=== PATIENT | female | born 1985 | race Caucasian/White ===

== ENCOUNTER 2018-02-14 14:56 | Emergency (ER) | payer BC ==
[2018-02-14 15:08] VITALS: TEMP 98.3; BMI 25.4
--- NOTE | 2018-02-14 15:15 | PDOC ---
Rapid Medical Evaluation Chief Complaint: Palpitations Time Seen by Provider: 02/14/18 15:09 Medical Evaluation: Allergies Allergy/AdvReac Type Severity Reaction Status Date / Time No Known Allergies Allergy Verified 08/21/15 18:45 Vital Signs Temp Pulse Resp BP Pulse Ox 98.3 F 110 H 20 159/100 99 02/14/18 15:01 02/14/18 15:01 02/14/18 15:01 02/14/18 15:01 02/14/18 15:01 02/14/18 15:14 I have performed a brief in-person evaluation of this patient. The patient presents with a chief complaint of:palpitations w/ sob. H/o MVP, not on meds. F/u with cards at [facility]. No h/o dvt/PE Pertinent physical exam findings:tachy to 110, chest/lungs clear otherwise I have ordered the following:ekg/cxr/labs The patient will proceed to the ED for further evaluation. Discharge Disposition - Diagnosis Palpitations - Referrals - Patient Instructions - Post Discharge Activity
--- NOTE | 2018-02-14 15:17 | PDOC ---
History of Present Illness - General Chief Complaint: Palpitations Stated Complaint: SOB, PALPITATIONS (ASTHMA) Time Seen by Provider: 02/14/18 15:09 - History of Present Illness Initial Comments: 30 year old female with a past medical history of migraines and mitral valve prolapse presenting to the ED complaining of worsening palpitations for the pat 4-5 days. She was diagnosed with MVP after a syncopal episode in the setting of palpations. Her tapping machine operator automatic (Dr. Suarez) decided to monitor her with a trial prescription of as-needed beta abbi that she never used. She denies any recent illness, dehydration, or life stresses. States that the palliations have become much more frequent and with worse co-presenting symptoms including lightheadedness and some light nausea. Denies any fevers, chills, vomiting, diarrhea, chest pain, constipation, or other symptoms. 02/14/18 15:57 Past History - Past Medical History Allergies/Adverse Reactions: Allergies Allergy/AdvReac Type Severity Reaction Status Date / Time No Known Allergies Allergy Verified 08/21/15 18:45 Home Medications: Ambulatory Orders Metoprolol Succinate 25 mg PO DAILY 30 Days #30 tab.er.24h 02/14/18 Cardiac Disorders: Yes (MVP) COPD: No Other medical history: denies - Immunization History Immunization Up to Date: Yes - Suicide/Smoking/Psychosocial Hx Smoking History: Never smoked Information on smoking cessation initiated: No Hx Alcohol Use: No Drug/Substance Use Hx: No Substance Use Type: None Review of Systems - Review of Systems Constitutional: No: Chills, Diaphoresis, Fever HEENTM: No: Blurred Vision, Tearing Respiratory: Yes: Cough, Shortness of Breath. No: Wheezing, Productive cough Cardiac (ROS): Yes: Irregular Heart Rate, Lightheadedness, Palpitations. No: Chest Pain, Syncope, Chest Tightness ABD/GI: No: Diarrhea, Nausea, Vomiting : No: Dysuria, Discharge, Frequency Musculoskeletal: No: Back Pain, Gout, Joint Pain Integumentary: No: Lesions, Lumps, Pallor, Pruritus Neurological: Yes: Weakness. No: Headache, Numbness, Paresthesia Psychiatric: No: Anxiety, Depression Endocrine: No: Excessive Sweating, Flushing, Increased Hunger *Physical Exam - Vital Signs Last Vital Signs Temp Pulse Resp BP Pulse Ox 98.3 F 110 H 20 159/100 99 02/14/18 15:01 02/14/18 15:01 02/14/18 15:01 02/14/18 15:01 02/14/18 15:01 - Physical Exam General Appearance: Yes: Nourished, Appropriately Dressed. No: Apparent Distress HEENT: positive: EOMI, KIRAN, Normal ENT Inspection, Normal Voice Neck: positive: Trachea midline, Normal Thyroid, Supple. negative: Tender, Rigid Respiratory/Chest: negative: Chest Tender Cardiovascular: positive: Regular Rhythm, Tachycardia, Systolic Murmur ( midsystolic non-ejection click). negative: Regular Rate Gastrointestinal/Abdominal: positive: Normal Bowel Sounds, Flat, Soft. negative : Tender Musculoskeletal: positive: Normal Inspection. negative: CVA Tenderness Extremity: positive: Normal Capillary Refill, Normal Inspection, Normal Range of Motion. negative: Tender Integumentary: positive: Normal Color, Dry, Warm Neurologic: positive: Fully Oriented, Alert, Normal Mood/Affect, Normal Response , Motor Strength /5 ED Treatment Course - LABORATORY CBC & Chemistry Diagram: 02/14/18 15:44 02/14/18 15:44 Medical Decision Making - Medical Decision Making 32 year old female with PMH Of MVP and palpitations presenting with worsening palpitations. EKG demonstrating slight tachycardia with occasional PACs. 02/14/18 16:10 All labs WNL and patient feeling better after 25 Metop XL as recommended during consult phone call with Dr. Olivier (her tapping machine operator automatic). He will try to arrange an early appointment with her as well. Will send home with 25 Metop Qdaily until she sees pasquale. 02/14/18 20:27 *DC/Admit/Observation/Transfer Diagnosis at time of Disposition: Palpitations - Discharge Dispostion Disposition: HOME Condition at time of disposition: Improved Decision to Admit order: No - Prescriptions Prescriptions: Metoprolol Succinate 25 mg PO DAILY 30 Days #30 tab.er.24h - Referrals Referrals: Lorelei Rosa MD [Staff Physician] - - Patient Instructions Printed Discharge Instructions: DI for Palpitations Additional Instructions: Your palpitations may be related to your valve issue. Please take your medication everyday until you see Dr. Suarez. Please stay well hydrated and please return to the ED if you experience very lightheaded or feel as if you will pass out. Please follow up with Dr. Suarez as early as possible. - Post Discharge Activity
[2018-02-14 15:55] LABS: BASO % 0.5 % (0-2.0); EOS % 0.3 % (0-4.5); HEMOGLOBIN 13.7 GM/dL (10.7-15.3); LYMPH % 21.8 % (8-40); MCHC 33.4 g/dl (32.0-36.0); MEAN CELL VOLUME 89.9 fl (80-96); MEAN PLT VOLUME 8.3 fl (7.5-11.1); MONO % 6.2 % (3.8-10.2); NEUT % 71.2 % (42.8-82.8); PLATELET COUNT 300 K/MM3 (134-434); RBC 4.56 M/mm3 (3.60-5.2); RDW 13.4 % (11.6-15.6); WHITE BLOOD COUNT 10.2 K/mm3 (4.0-10.0)
[2018-02-14] MEDS ORDERED: SODIUM CHLORIDE 0.9% 500 ML INFUS.BAG IV ONE (16:12)
--- NOTE | 2018-02-14 16:31 | PDOC ---
Attending Attestation - Resident Resident Name: Ester Rico - ED Attending Attestation I have performed the following: I have examined & evaluated the patient, The case was reviewed & discussed with the resident, I agree w/resident's findings & plan, Exceptions are as noted - HPI HPI: 32 yo F history migraines, mitral valve prolapse presents with worsening palpitations for past few days. She states she has had similar palpitations in the past which led to her diagnosis of mitral valve prolapse, however, she states that these are more frequent than usual. She states she had an episode of lightheadedness with the palpitations. No LOC. She saw nozzle tender for the same, was prescribed beta-abbi to use prn, but has not used it. No recent illness, N/V/D, f/c, leg swelling, cp, SOB, change in PO intake. No recent travel. - Physicial Exam PE: GENERAL: Awake, alert, and fully oriented, in no acute distress HEAD: No signs of trauma EYES: PERRLA, EOMI, sclera anicteric, conjunctiva clear ENT: Auricles normal inspection, hearing grossly normal, nares patent, oropharynx clear without exudates. Moist mucosa NECK: Normal ROM, supple, no lymphadenopathy, JVD, or masses LUNGS: Breath sounds equal, clear to auscultation bilaterally. No wheezes, and no crackles HEART: Mildly tachycardic with normal rhythm, normal S1 and S2, no murmurs, rubs or gallops ABDOMEN: Soft, nontender, normoactive bowel sounds. No guarding, no rebound. No masses EXTREMITIES: Normal range of motion, no edema. No clubbing or cyanosis. No cords, erythema, or tenderness NEUROLOGICAL: Cranial nerves II through XII grossly intact. Normal speech, normal gait. Motor and sensation intact. SKIN: Warm, Dry, normal turgor, no rashes or lesions noted. - Medical Decision Making Pt is low risk for PE. Will obtain D-dimer, basic labs, TSH. Will give IV fluids.
--- NOTE | 2018-02-14 16:34 | EKG ---
Test Reason : Blood Pressure : / mmHG Vent. Rate : 116 BPM Atrial Rate : 116 BPM P-R Int : 126 ms QRS Dur : 076 ms QT Int : 324 ms P-R-T Axes : 054 056 034 degrees QTc Int : 450 ms SINUS TACHYCARDIA WITH PREMATURE ATRIAL COMPLEXES OTHERWISE NORMAL ECG WHEN COMPARED WITH ECG OF 07-NOV-2007 13:44, PREMATURE ATRIAL COMPLEXES ARE NOW PRESENT Confirmed by STELLA BURCH, TYLER ([id number]) on 02/14/2018 4:34:14 PM Referred By: Confirmed By:TYLER DOUGLAS MD
[2018-02-14 16:38] LABS: ALBUMIN 4.5 g/dl (3.4-5.0); ANION GAP 7 (8-16); BLOOD UREA NITROGEN 14 mg/dL (7-18); CALCIUM 9.2 mg/dL (8.5-10.1); CHLORIDE 106 mmol/L (98-107); CO2 27 mmol/L (21-32); GLUCOSE,RANDOM 91 mg/dL (74-106); POTASSIUM 3.8 mmol/L (3.5-5.1); SGOT/AST 11 U/L (15-37); SGPT/ALT 13 U/L (12-78); SODIUM 140 mmol/L (136-145)
[2018-02-14 16:43] LABS: ALK PHOS 42 U/L (45-117); BILIRUBIN,TOTAL 0.7 mg/dL (0.2-1.0); CREATININE 0.7 mg/dL (0.55-1.02); TOT PROT 8.5 g/dl (6.4-8.2)
[2018-02-14 17:03] LABS: MAGNESIUM 2.2 mg/dL (1.8-2.4); PHOSPHOROUS 3.6 mg/dL (2.5-4.9)
--- NOTE | 2018-02-14 18:15 | PDOC ---
*Physical Exam - Vital Signs Last Vital Signs Temp Pulse Resp BP Pulse Ox 98.3 F 110 H 20 159/100 97 02/14/18 15:01 02/14/18 15:01 02/14/18 15:01 02/14/18 15:01 02/14/18 16:00 - Physical Exam Comments: 02/14/18 18:10 Gen: aaox3, nad heart: +s1s2 reg lungs: cta b/l abd: soft, nt/nd +bs ext: no c/c/e no thyromegaly ED Treatment Course - LABORATORY CBC & Chemistry Diagram: 02/14/18 15:44 02/14/18 15:44 - ADDITIONAL ORDERS Additional order review: Laboratory Results 02/14/18 02/14/18 02/14/18 15:44 15:44 15:44 Sodium 140 Potassium 3.8 Chloride 106 Carbon Dioxide 27 Anion Gap 7 L BUN 14 Creatinine 0.7 Creat Clearance w eGFR > 60 Random Glucose 91 Calcium 9.2 Phosphorus Cancelled 3.6 Magnesium Cancelled 2.2 Total Bilirubin 0.7 D AST 11 L ALT 13 Alkaline Phosphatase 42 L Creatine Kinase 74 Troponin I < 0.02 Total Protein 8.5 H Albumin 4.5 TSH Cancelled 2.18 Serum , Qual 02/14/18 15:18 Sodium Potassium Chloride Carbon Dioxide Anion Gap BUN Creatinine Creat Clearance w eGFR Random Glucose Calcium Phosphorus Magnesium Total Bilirubin AST ALT Alkaline Phosphatase Creatine Kinase Troponin I Total Protein Albumin TSH Serum , Qual Negative 02/14/18 15:44 RBC 4.56 MCV 89.9 MCHC 33.4 RDW 13.4 MPV 8.3 Neutrophils % 71.2 Lymphocytes % 21.8 D Monocytes % 6.2 Eosinophils % 0.3 Basophils % 0.5 - Medications Given in the ED: ED Medications Discontinued Medications Generic Name Dose Route Start Last Admin Trade Name Freq PRN Reason Stop Dose Admin Sodium Chloride 1,000 ml 02/14/18 16:12 02/14/18 16:22 Normal Saline - IV 02/14/18 16:13 1,000 ml ONCE ONE Administration Medical Decision Making - Medical Decision Making 02/14/18 18:14 a/p: 32yo female signed out by the prior attending pening labs and repeat eval -pt states feeling better -less freq palpitations -labs pending -will continue to monitor and reassess -dr. mares is her cards- has not seen since may of 201702/14/18 20:36 resident discussed the case with cardiology who will see patient tomorrow in the office recommends starting metoprolol 25mg first dose given in ED and paitent tolerated well. *DC/Admit/Observation/Transfer Diagnosis at time of Disposition: Palpitations - Discharge Dispostion Disposition: HOME Condition at time of disposition: Stable Decision to Admit order: No - Prescriptions Prescriptions: Metoprolol Succinate 25 mg PO DAILY 30 Days #30 tab.er.24h - Referrals - Patient Instructions - Post Discharge Activity - Attestations Physician Attestion: 02/14/18 20:37 I, Dr. Aishwarya Clark, DO, attest that this document has been prepared under my direction and personally reviewed by me in its entirety. I further attest, that it accurately reflects all work, treatment, procedures and medical decision -making performed by me.
[2018-02-14] MEDS ORDERED: metoPROLOL SUCCINATE 25 MG TAB.SR.24H (FP) PO ONE (19:17)
[2018-02-14 20:02] VITALS: BP 122/86; PULSE 82
[2018-02-15 03:23] LABS: COCAINE, UR NEGATIVE ng/ml (CUTOFF=300); URINE AMPHETAMINES NEGATIVE ng/ml (CUTOFF=500); URINE BARBITURATES NEGATIVE ng/ml (CUTOFF=200); URINE BENZODIAZEPINES NEGATIVE ng/ml (CUTOFF=200)
[2018-02-15 03:24] LABS: METHADONE, UR NEGATIVE ng/ml (CUTOFF=300); OPIATES, URI NEGATIVE ng/ml (CUTOFF=300); PHENCYCLIDINE,URINE NEGATIVE ng/ml (CUTOFF=25)
== END 2018-02-14 21:03 | disposition home or self-care (01) ==
LOC: JER 14:56
PROC: 3E0337Z Introduction of Electrolytic and Water Balance Substance into Peripheral Vein, Percutaneous Approach (ICD-10-PCS; principal; 2018-02-14)
DX: R00.2 Palpitations (principal); I34.1 Nonrheumatic mitral (valve) prolapse
CPT/HCPCS: 36415; 71046-TC-FY; 80053; 80307; 82550; 83735; 84100; 84443; 84484; 84703; 85025; 85379; 93005; 93010; 99285-25